=== PATIENT | male | born 1935 | race American Indian/Alaskan Native ===

== ENCOUNTER 2017-06-29 10:40 | Outpatient (CLI) | payer MEDICARE ==
--- NOTE | 2017-06-29 23:13 | XRay Report ---
FINAL REPORT PROCEDURE: XR FEMUR 2+V RT TECHNIQUE: RIGHT femur radiographs, AP and lateral views. HISTORY: LEG PAIN COMPARISON: No prior studies are available for comparison. FINDINGS: Fracture (s) and/or Dislocation(s): None . Joint space(s): Mild narrowing of the joint spaces. Soft tissues: Normal . Bone mineralization: Normal . Foreign bodies: None . IMPRESSION: No acute fracture or dislocation. Mild arthritis
--- NOTE | 2017-06-29 23:15 | XRay Report ---
FINAL REPORT PROCEDURE: XR HIPS BILAT 2V W/PELVIS TECHNIQUE: Bilateral hip radiographs, 2 views each, including AP view of the pelvis. HISTORY: EDEMA COMPARISON: No prior studies are available for comparison. FINDINGS: Fracture (s) and/or Dislocation(s): None . Joint space(s): Mild narrowing of the hip joint spaces Soft tissues: Normal. Bone mineralization: Normal. Foreign bodies: None. IMPRESSION: No evidence of an acute fracture. No mild arthritis
== END 2017-06-29 10:41 | disposition home or self-care (01) ==
LOC: SPVIMAG 10:40
DX: M19.90 Unspecified osteoarthritis, unspecified site (principal); R60.0 Localized edema
CPT/HCPCS: 73521

== ENCOUNTER 2017-06-30 10:26 | Inpatient (IN) | payer MEDICARE ==
--- NOTE | 2017-06-30 11:59 | XRay Report ---
Right femur 2 views: History: Leg pain. Findings: There is mild arthritic changes noted in the hip joints. No lytic lesion. No periosteal reaction or fracture or significant soft tissue calcification. Impression: Mild arthritic changes right hip.
--- NOTE | 2017-06-30 12:00 | XRay Report ---
Bilateral hips: History: Edema. Findings: Mild arthritic changes of the right and left hip joint. No fracture dislocation or soft tissue calcification Impression: Mild changes in right and left hip.
--- NOTE | 2017-06-30 15:06 | Emergency Department Report ---
ED General Adult HPI - General Chief complaint: Extremity Problem,Nontraumatic Time Seen by Provider: 06/30/17 13:11 Source: patient, family Mode of arrival: Wheelchair Limitations: No Limitations - History of Present Illness Initial comments: Patient is a 81-year-old male past medical history COPD on hospice who presents with left leg pain. Patient's left leg pain is a 7 out of 10 it is an achy pain nothing makes it better or worse. The pain is constant is been going on for about a week. Patient is a patient of Dr. Sultana was sent here for referral due to him having leg pain the leg pain is a 4 out of 10 it is constant and nothing makes it better or worse it goes throughout his legs and he 's noticed swelling in his right leg. Patient is on 5 L of home O2 he is on hospice care. Severity scale (0 -10): 0 - Related Data Home Medications Medication Instructions Recorded Confirmed Last Taken ALBUTEROL Inhaler [ProAir HFA 2 puff IH QID PRN 12/15/14 12/15/14 Unknown Inhaler] Albuterol *Only Ed* [Proventil 2.5 mg IH Q4H PRN 12/15/14 12/15/14 Unknown 0.5% NEBS] Fluticasone/Salmeterol [Advair 1 puff IH BID 12/15/14 12/15/14 Unknown Diskus 250-50 mcg] Previous Rx's Medication Instructions Recorded Last Taken Type Azithromycin [Zithromax TAB] 250 mg PO QDAY #7 tablet 12/16/14 Unknown Rx HYDROcodone/HOMATROP 5-1.5 5 ml PO BID PRN #150 ml 12/16/14 Unknown Rx [HYDROcodone-Homatropin 5-1.5 mg per 5 ML] predniSONE [Deltasone] 10 mg PO QDAY #52 tab 12/17/14 Unknown Rx Allergies Allergy/AdvReac Type Severity Reaction Status Date / Time No Known Allergies Allergy Verified 06/30/17 12:26 ED Review of Systems ROS: Stated complaint: Other details as noted in HPI Constitutional: denies: chills, fever Eyes: denies: eye pain, eye discharge, vision change ENT: denies: ear pain, throat pain Respiratory: denies: cough, shortness of breath, wheezing Cardiovascular: denies: chest pain, palpitations Endocrine: no symptoms reported Gastrointestinal: denies: abdominal pain, nausea, diarrhea Genitourinary: denies: urgency, dysuria Musculoskeletal: as per HPI. denies: back pain, joint swelling, arthralgia Skin: denies: rash, lesions Neurological: denies: headache, weakness, paresthesias Psychiatric: denies: anxiety, depression Hematological/Lymphatic: denies: easy bleeding, easy bruising ED Past Medical Hx - Past Medical History Previous Medical History?: Yes Hx Diabetes: Yes (borderline) Hx COPD: Yes Additional medical history: 20%lung capacity due to COPD. Pt is on hospice for COPD - Social History Smoking Status: Never Smoker Substance Use Type: None, Alcohol - Medications Home Medications: Home Medications Medication Instructions Recorded Confirmed Last Taken Type ALBUTEROL Inhaler [ProAir HFA 2 puff IH QID PRN 12/15/14 12/15/14 Unknown History Inhaler] Albuterol *Only Ed* [Proventil 2.5 mg IH Q4H PRN 12/15/14 12/15/14 Unknown History 0.5% NEBS] Fluticasone/Salmeterol [Advair 1 puff IH BID 12/15/14 12/15/14 Unknown History Diskus 250-50 mcg] Azithromycin [Zithromax TAB] 250 mg PO QDAY #7 tablet 12/16/14 Unknown Rx HYDROcodone/HOMATROP 5-1.5 5 ml PO BID PRN #150 ml 12/16/14 Unknown Rx [HYDROcodone-Homatropin 5-1.5 mg per 5 ML] predniSONE [Deltasone] 10 mg PO QDAY #52 tab 12/17/14 Unknown Rx ED Physical Exam - General Limitations: No Limitations General appearance: alert, in no apparent distress - Head Head exam: Present: atraumatic, normocephalic - Eye Eye exam: Present: normal appearance - ENT ENT exam: Present: mucous membranes moist - Neck Neck exam: Present: normal inspection - Respiratory Respiratory exam: Present: normal lung sounds bilaterally. Absent: respiratory distress - Cardiovascular Cardiovascular Exam: Present: regular rate, normal rhythm. Absent: systolic murmur, diastolic murmur, rubs, gallop - GI/Abdominal GI/Abdominal exam: Present: soft, normal bowel sounds - Rectal Rectal exam: Present: deferred - Extremities Exam Extremities exam: Present: normal inspection, tenderness (right calf ), pedal edema, other - Back Exam Back exam: Present: normal inspection - Neurological Exam Neurological exam: Present: alert, oriented X3 - Psychiatric Psychiatric exam: Present: normal affect, normal mood - Skin Skin exam: Present: warm, dry, intact, normal color. Absent: rash ED Course Vital Signs 06/30/17 06/30/17 06/30/17 12:11 12:12 12:15 Temperature 98.3 F Pulse Rate 68 Respiratory 18 18 Rate Blood Pressure 123/68 Blood Pressure 123/68 [Left] O2 Sat by Pulse 94 97 94 Oximetry 06/30/17 06/30/17 12:16 12:30 Temperature Pulse Rate Respiratory Rate Blood Pressure 122/67 131/62 Blood Pressure [Left] O2 Sat by Pulse 94 93 Oximetry ED Medical Decision Making - Radiology Data Radiology results: report reviewed Right venous leg duplex: Positive for deep venous thrombosis. - Medical Decision Making Cdx: DVT ddx: SVT, Cellulitis I will give I am Lovenox I will get CBC, PTT and INR and I'll be patient oral pain medication. I will give blood work, lovenox and I will admit patient do Dr. Bynum's service is patient agrees to plan Critical care attestation.: If time is entered above; I have spent that time in minutes in the direct care of this critically ill patient, excluding procedure time. ED Disposition Clinical Impression: DVT (deep venous thrombosis) Qualifiers: DVT location: lower extremity Affected thrombotic vein of extremity: femoral Chronicity: acute Laterality: right Qualified Code(s): I82.411 - Acute embolism and thrombosis of right femoral vein Disposition: OP ADMIT IP TO THIS HOSP Is pt being admited?: Yes Does the pt Need Aspirin: No Condition: Stable Referrals: RADHA RICHARDS MD, PHD [Primary Care Provider] - 3-5 Days
[2017-06-30] MEDS ORDERED: LOVENOX SUB-Q ONE ×3 (15:40→15:43)
[2017-06-30 15:41] LABS: BUN/Creatinine Ratio 17; Basophils % (Auto) 0.5 % (0.0-1.8); Blood Urea Nitrogen 15 mg/dL (9-20); Calcium 9.6 mg/dL (8.4-10.2); Eosinophils % (Auto) 0.2 % (0.0-4.3); Hematocrit 45.8 % (35.5-45.6); Hemoglobin 14.6 gm/dl (11.8-15.2); Hemolysis Index 8; Lymphocytes # (Auto) 1.2 K/mm3 (1.2-5.4); Lymphocytes % (Auto) 16.5 % (13.4-35.0); Mean Corpuscular HGB Conc 32 % (32-34); Mean Corpuscular Hemoglobin 31 pg (28-32); Mean Corpuscular Volume 96 fl (84-94); Monocytes # (Auto) 0.4 K/mm3 (0.0-0.8); Monocytes % (Auto) 5.6 % (0.0-7.3); Platelet Count 141 K/mm3 (140-440); Red Blood Count 4.76 M/mm3 (3.65-5.03); Red Cell Distribution Width 15.1 % (13.2-15.2)
[2017-06-30 15:46] LABS: INR 0.95 (0.87-1.13)
[2017-06-30 15:47] LABS: Partial Thromboplastin Time 26.9 Sec. (24.2-36.6)
[2017-06-30] MEDS ORDERED: LOVENOX SUB-Q SCH (16:00)
[2017-06-30] MEDS: LOVENOX SUB-Q SCH ×2 (16:10→22:26)
[2017-06-30] MEDS ORDERED: TYLENOL PO PRN (17:34)
[2017-06-30] MEDS ORDERED: SODIUM CHLORIDE FLUSH SYRINGE 10 ML IV PRN (17:34)
[2017-06-30] MEDS ORDERED: MORPHINE IV PRN (17:34)
[2017-06-30] MEDS ORDERED: ZOFRAN IV PRN (17:34)
[2017-06-30] MEDS ORDERED: PERCOCET 5/325 PO PRN (17:34)
--- NOTE | 2017-06-30 17:34 | History and Physical Report ---
History of Present Illness Date of examination: 06/30/17 Date of admission: 06/30/17 15:27 Chief complaint: RLE swelling History of present illness: History of Present Illness Initial comments: Patient is a 81-year-old male past medical history COPD on hospice who presents with left leg pain. Patient's left leg pain is a 7 out of 10 it is an achy pain nothing makes it better or worse. The pain is constant is been going on for about a week. Patient is a patient of Dr. Sultana was sent here for referral due to him having leg pain the leg pain is a 4 out of 10 it is constant and nothing makes it better or worse it goes throughout his legs and he 's noticed swelling in his right leg. Patient is on 5 L of home O2 he is on hospice care. Past Medical History Previous Medical History?: Yes Hx Diabetes: Yes (borderline) Hx COPD: Yes Additional medical history: 20%lung capacity due to COPD. Pt is on hospice for COPD - Social History Smoking Status: Never Smoker Substance Use Type: None, Alcohol Surgical and Family Hostory Non Contributory - Medications Home Medications: Home Medications Medication Instructions Recorded Confirmed Last Taken Type ALBUTEROL Inhaler [ProAir HFA 2 puff IH QID PRN 12/15/14 12/15/14 Unknown History Inhaler] Albuterol *Only Ed* [Proventil 2.5 mg IH Q4H PRN 12/15/14 12/15/14 Unknown History 0.5% NEBS] Fluticasone/Salmeterol [Advair 1 puff IH BID 12/15/14 12/15/14 Unknown History Diskus 250-50 mcg] Azithromycin [Zithromax TAB] 250 mg PO QDAY #7 tablet 12/16/14 Unknown Rx HYDROcodone/HOMATROP 5-1.5 5 ml PO BID PRN #150 ml 12/16/14 Unknown Rx [HYDROcodone-Homatropin 5-1.5 mg per 5 ML] predniSONE [Deltasone] 10 mg PO QDAY #52 tab 12/17/14 Unknown Rx Review of Systems ROS: Stated complaint: Other details as noted in HPI Constitutional: denies: chills, fever Eyes: denies: eye pain, eye discharge, vision change ENT: denies: ear pain, throat pain Respiratory: denies: cough, shortness of breath, wheezing Cardiovascular: denies: chest pain, palpitations Endocrine: no symptoms reported Gastrointestinal: denies: abdominal pain, nausea, diarrhea Genitourinary: denies: urgency, dysuria Musculoskeletal: as per HPI. denies: back pain, joint swelling, arthralgia Skin: denies: rash, lesions Neurological: denies: headache, weakness, paresthesias Psychiatric: denies: anxiety, depression Hematological/Lymphatic: denies: easy bleeding, easy bruising Medications and Allergies Allergies Allergy/AdvReac Type Severity Reaction Status Date / Time No Known Allergies Allergy Verified 06/30/17 12:26 Home Medications Medication Instructions Recorded Confirmed Last Taken Type Ipratropium 0.06% [Atrovent] 2 spray NS Q8HR 06/30/17 06/30/17 06/29/17 History amLODIPine [Norvasc] 5 mg PO DAILY 06/30/17 06/30/17 06/30/17 History ALBUTEROL NEB's Q4H PRN 07/01/17 Unknown History Active Meds: Active Medications Enoxaparin Sodium (Lovenox) 70 mg SUB-Q Q12HR [facility] Last Admin: 06/30/17 16:10 Dose: 70 mg Exam - Constitutional Vitals: Temp Pulse Resp BP Pulse Ox 98.3 F 73 18 136/52 94 06/30/17 12:11 06/30/17 15:15 06/30/17 15:15 06/30/17 15:15 06/30/17 15:15 General appearance: Present: no acute distress, well-nourished - EENT Eyes: Present: PERRL ENT: hearing intact, clear oral mucosa - Neck Neck: Present: supple, normal ROM - Respiratory Respiratory effort: normal Respiratory: bilateral: CTA - Cardiovascular Heart rate: 70 Rhythm: regular Heart Sounds: Present: S1 & S2. Absent: rub, click - Extremities Extremities: pulses symmetrical, No edema Extremity abnormal: edema, other (RLE swollen from Mid Thigh down to ankle) Peripheral Pulses: within normal limits - Abdominal General gastrointestinal: Present: soft, non-tender, non-distended, normal bowel sounds Male genitourinary: Present: normal - Integumentary Integumentary: Present: clear, warm, dry - Musculoskeletal Musculoskeletal: gait normal, strength equal bilaterally - Psychiatric Psychiatric: appropriate mood/affect, intact judgment & insight - Neurologic Neurologic: CNII-XII intact, moves all extremities Results - Labs CBC & Chem 7: 07/01/17 05:08 07/01/17 05:08 Labs: Laboratory Last Values WBC 7.1 K/mm3 (4.5-11.0) 06/30/17 15:00 RBC 4.76 M/mm3 (3.65-5.03) 06/30/17 15:00 Hgb 14.6 gm/dl (11.8-15.2) 06/30/17 15:00 Hct 45.8 % (35.5-45.6) H 06/30/17 15:00 MCV 96 fl (84-94) H 06/30/17 15:00 MCH 31 pg (28-32) 06/30/17 15:00 MCHC 32 % (32-34) 06/30/17 15:00 RDW 15.1 % (13.2-15.2) 06/30/17 15:00 Plt Count 141 K/mm3 (140-440) 06/30/17 15:00 Lymph % (Auto) 16.5 % (13.4-35.0) 06/30/17 15:00 [place] % (Auto) 5.6 % (0.0-7.3) 06/30/17 15:00 Eos % (Auto) 0.2 % (0.0-4.3) 06/30/17 15:00 Baso % (Auto) 0.5 % (0.0-1.8) 06/30/17 15:00 Lymph # 1.2 K/mm3 (1.2-5.4) 06/30/17 15:00 [place] # 0.4 K/mm3 (0.0-0.8) 06/30/17 15:00 Eos # 0.0 K/mm3 (0.0-0.4) 06/30/17 15:00 Baso # 0.0 K/mm3 (0.0-0.1) 06/30/17 15:00 Seg Neutrophils % 77.2 % (40.0-70.0) H 06/30/17 15:00 Seg Neutrophils # 5.5 K/mm3 (1.8-7.7) 06/30/17 15:00 PT 13.2 Sec. (12.2-14.9) 06/30/17 15:00 INR 0.95 (0.87-1.13) 06/30/17 15:00 APTT 26.9 Sec. (24.2-36.6) 06/30/17 15:00 Sodium 137 mmol/L (137-145) 06/30/17 15:00 Potassium 4.7 mmol/L (3.6-5.0) 06/30/17 15:00 Chloride 96.5 mmol/L (98-107) L 06/30/17 15:00 Carbon Dioxide 27 mmol/L (22-30) 06/30/17 15:00 Anion Gap 18 mmol/L 06/30/17 15:00 BUN 15 mg/dL (9-20) 06/30/17 15:00 Creatinine 0.9 mg/dL (0.8-1.5) 06/30/17 15:00 Estimated GFR > 60 ml/min 06/30/17 15:00 BUN/Creatinine Ratio 17 % 06/30/17 15:00 Glucose 185 mg/dL (75-100) H 06/30/17 15:00 Calcium 9.6 mg/dL (8.4-10.2) 06/30/17 15:00 - Imaging and Cardiology EKG: report reviewed Imaging and Cardiology: VASCULAR LAB.PRELIMINARY REPORT. RLE VENOUS DUPLEX DONE. EVIDENCE OF ACUTE DVT IN THE RT.DISTAL ILIAC VEIN EXTENDING TO THE RT.PERONEAL VEIN AT MID CALF. INFORMED AT 1128 . HE SAID TO BRING THE PATIENT TO THE ER FOR ADMISSION. Assessment and Plan Advance Directives: Yes (Full code) VTE prophylaxis?: Chemical Plan of care discussed with patient/family: Yes - Patient Problems (1) DVT (deep venous thrombosis) Current Visit: Yes Status: Acute Qualifiers: DVT location: lower extremity Affected thrombotic vein of extremity: femoral Chronicity: acute Laterality: right Qualified Code(s): I82.411 - Acute embolism and thrombosis of right femoral vein Plan to address problem: RLE DVT extensive Patient initiated on Lovenox To be discharged on Eliquis or Xarelto (2) COPD (chronic obstructive pulmonary disease) Current Visit: Yes Status: Chronic Qualifiers: Emphysema type: unspecified Plan to address problem: Severe with ESLD ---20 percent capacity on Hospice Cont Duonebs (3) T2DM (type 2 diabetes mellitus) Current Visit: Yes Status: Chronic Qualifiers: Diabetes mellitus long-term insulin use: without long-term use Plan to address problem: Coverage only (4) Malnutrition of moderate degree Current Visit: Yes Status: Acute Plan to address problem: Dietitian conult for oral supplements (5) DVT prophylaxis Current Visit: No Status: Acute Plan to address problem: On Lovenox
[2017-06-30] MEDS: ATROVENT NS SCH ×2 (19:15→22:26)
[2017-06-30] MEDS: NORVASC PO SCH (19:15)
[2017-06-30] MEDS: PEPCID PO SCH (22:27)
[2017-06-30] MEDS: SODIUM CHLORIDE FLUSH SYRINGE 10 ML IV SCH (22:28)
[2017-07-01] MEDS: D5NS 1,000 ML IV SCH ×2 (02:39→18:59)
[2017-07-01 05:41] LABS: Basophils % (Auto) 0.6 % (0.0-1.8); Eosinophils # (Auto) 0.1 K/mm3 (0.0-0.4); Eosinophils % (Auto) 1.6 % (0.0-4.3); Hematocrit 41.5 % (35.5-45.6); Hemoglobin 13.4 gm/dl (11.8-15.2); Lymphocytes # (Auto) 2.3 K/mm3 (1.2-5.4); Lymphocytes % (Auto) 32.4 % (13.4-35.0); Mean Corpuscular HGB Conc 32 % (32-34); Mean Corpuscular Hemoglobin 31 pg (28-32); Mean Corpuscular Volume 95 fl (84-94); Monocytes # (Auto) 0.6 K/mm3 (0.0-0.8); Monocytes % (Auto) 8.9 % (0.0-7.3); Platelet Count 130 K/mm3 (140-440); Red Blood Count 4.35 M/mm3 (3.65-5.03)
[2017-07-01 06:00] LABS: Alanine Aminotransferase 25 units/L (7-56); Albumin 3.7 g/dL (3.9-5); BUN/Creatinine Ratio 16; Blood Urea Nitrogen 13 mg/dL (9-20); Calcium 8.8 mg/dL (8.4-10.2); Hemolysis Index 6
[2017-07-01] MEDS: ATROVENT NS SCH (06:37)
[2017-07-01] MEDS ORDERED: DUONEB *Not for PRN Use IH (07:49)
[2017-07-01] MEDS ORDERED: PROVENTIL IH PRN (07:59)
[2017-07-01] MEDS ORDERED: DUONEB *Not for PRN Use IH SCH (08:00)
[2017-07-01] MEDS: PEPCID PO SCH ×2 (09:25→21:34)
[2017-07-01] MEDS: LOVENOX SUB-Q SCH ×2 (09:25→21:34)
[2017-07-01] MEDS: NORVASC PO SCH (09:25)
[2017-07-01] MEDS: SODIUM CHLORIDE FLUSH SYRINGE 10 ML IV SCH ×2 (09:26→21:35)
[2017-07-01] MEDS ORDERED: PNEUMOVAX 23 IM ONE (12:00)
[2017-07-01] MEDS: HumaLOG SUB-Q SCH ×3 (12:06→21:35)
[2017-07-01] MEDS: DUONEB *Not for PRN Use IH SCH ×2 (13:17→20:06)
--- NOTE | 2017-07-01 17:40 | Progress Note ---
Assessment and Plan Assessment and plan: --Right lower extremity DVT On Lovenox, will change to Eliquis tomorrow Follow art librarian as outpatient --History of COPD/end-stage lung disease On hospice, continue oxygen and nebulizers and supportive care --Type 2 diabetes mellitus; Accu-Chek sliding scale coverage and ADA diet Insulin as needed --Mild protein calorie malnutrition; nutrition supplements and supportive care --DVT prophylaxis; on Lovenox --Full CODE STATUS --DC planning per case management possible home with hospice When medically stable History Interval history: Patient seen and examined medical records reviewed Admitted with lower extremity DVT, On Lovenox Patient has no new complaints Vital signs reviewed Hospitalist Physical - Constitutional Vitals: Temp Pulse Resp BP Pulse Ox 98.1 F 69 19 128/51 99 07/01/17 15:53 07/01/17 15:53 07/01/17 15:53 07/01/17 15:32 07/01/17 15:53 General appearance: Present: no acute distress, well-nourished - EENT Eyes: Present: PERRL, EOM intact - Neck Neck: Present: supple, normal ROM - Respiratory Respiratory effort: normal Respiratory: bilateral: diminished, negative: rales, rhonchi, wheezing - Cardiovascular Rhythm: regular Heart Sounds: Present: S1 & S2 - Extremities Extremities: no ischemia, abnormal ( lower extremity DVT) - Abdominal General gastrointestinal: soft, non-tender, non-distended, normal bowel sounds - Integumentary Integumentary: Present: clear, warm - Psychiatric Psychiatric: appropriate mood/affect, cooperative - Neurologic Neurologic: CNII-XII intact, moves all extremities Results - Labs CBC & Chem 7: 07/01/17 05:08 07/01/17 05:08 Labs: Laboratory Last Values WBC 7.2 K/mm3 (4.5-11.0) 07/01/17 05:08 RBC 4.35 M/mm3 (3.65-5.03) 07/01/17 05:08 Hgb 13.4 gm/dl (11.8-15.2) 07/01/17 05:08 Hct 41.5 % (35.5-45.6) 07/01/17 05:08 MCV 95 fl (84-94) H 07/01/17 05:08 MCH 31 pg (28-32) 07/01/17 05:08 MCHC 32 % (32-34) 07/01/17 05:08 RDW 15.0 % (13.2-15.2) 07/01/17 05:08 Plt Count 130 K/mm3 (140-440) L 07/01/17 05:08 Lymph % (Auto) 32.4 % (13.4-35.0) 07/01/17 05:08 [place] % (Auto) 8.9 % (0.0-7.3) H 07/01/17 05:08 Eos % (Auto) 1.6 % (0.0-4.3) 07/01/17 05:08 Baso % (Auto) 0.6 % (0.0-1.8) 07/01/17 05:08 Lymph # 2.3 K/mm3 (1.2-5.4) 07/01/17 05:08 [place] # 0.6 K/mm3 (0.0-0.8) 07/01/17 05:08 Eos # 0.1 K/mm3 (0.0-0.4) 07/01/17 05:08 Baso # 0.0 K/mm3 (0.0-0.1) 07/01/17 05:08 Seg Neutrophils % 56.5 % (40.0-70.0) 07/01/17 05:08 Seg Neutrophils # 4.1 K/mm3 (1.8-7.7) 07/01/17 05:08 PT 13.2 Sec. (12.2-14.9) 06/30/17 15:00 INR 0.95 (0.87-1.13) 06/30/17 15:00 APTT 26.9 Sec. (24.2-36.6) 06/30/17 15:00 Sodium 139 mmol/L (137-145) 07/01/17 05:08 Potassium 4.0 mmol/L (3.6-5.0) 07/01/17 05:08 Chloride 99.4 mmol/L (98-107) 07/01/17 05:08 Carbon Dioxide 27 mmol/L (22-30) 07/01/17 05:08 Anion Gap 17 mmol/L 07/01/17 05:08 BUN 13 mg/dL (9-20) 07/01/17 05:08 Creatinine 0.8 mg/dL (0.8-1.5) 07/01/17 05:08 Estimated GFR > 60 ml/min 07/01/17 05:08 BUN/Creatinine Ratio 16 % 07/01/17 05:08 Glucose 110 mg/dL (75-100) H 07/01/17 05:08 POC Glucose 105 (70-105) 07/01/17 15:59 Hemoglobin A1c 7.6 % (4-6) H 06/30/17 15:00 Calcium 8.8 mg/dL (8.4-10.2) 07/01/17 05:08 Total Bilirubin 0.40 mg/dL (0.1-1.2) 07/01/17 05:08 AST 15 units/L (5-40) 07/01/17 05:08 ALT 25 units/L (7-56) 07/01/17 05:08 Alkaline Phosphatase 34 units/L (35-129) L 07/01/17 05:08 Total Protein 6.2 g/dL (6.3-8.2) L 07/01/17 05:08 Albumin 3.7 g/dL (3.9-5) L 07/01/17 05:08 Albumin/Globulin Ratio 1.5 % 07/01/17 05:08
[2017-07-02] MEDS: D5NS 1,000 ML IV SCH (04:53)
[2017-07-02] MEDS: HumaLOG SUB-Q SCH ×3 (08:00→16:30)
[2017-07-02] MEDS: DUONEB *Not for PRN Use IH SCH ×2 (09:03→15:19)
--- NOTE | 2017-07-02 09:19 | Progress Note ---
Hospitalist Physical - Constitutional Vitals: Temp Pulse Resp BP Pulse Ox 98.7 F 72 18 136/58 94 07/02/17 07:42 07/02/17 09:16 07/02/17 09:16 07/02/17 07:42 07/02/17 07:42 General appearance: Present: no acute distress, well-nourished Results - Labs CBC & Chem 7: 07/01/17 05:08 07/01/17 05:08 Labs: Laboratory Last Values WBC 7.2 K/mm3 (4.5-11.0) 07/01/17 05:08 RBC 4.35 M/mm3 (3.65-5.03) 07/01/17 05:08 Hgb 13.4 gm/dl (11.8-15.2) 07/01/17 05:08 Hct 41.5 % (35.5-45.6) 07/01/17 05:08 MCV 95 fl (84-94) H 07/01/17 05:08 MCH 31 pg (28-32) 07/01/17 05:08 MCHC 32 % (32-34) 07/01/17 05:08 RDW 15.0 % (13.2-15.2) 07/01/17 05:08 Plt Count 130 K/mm3 (140-440) L 07/01/17 05:08 Lymph % (Auto) 32.4 % (13.4-35.0) 07/01/17 05:08 [place] % (Auto) 8.9 % (0.0-7.3) H 07/01/17 05:08 Eos % (Auto) 1.6 % (0.0-4.3) 07/01/17 05:08 Baso % (Auto) 0.6 % (0.0-1.8) 07/01/17 05:08 Lymph # 2.3 K/mm3 (1.2-5.4) 07/01/17 05:08 [place] # 0.6 K/mm3 (0.0-0.8) 07/01/17 05:08 Eos # 0.1 K/mm3 (0.0-0.4) 07/01/17 05:08 Baso # 0.0 K/mm3 (0.0-0.1) 07/01/17 05:08 Seg Neutrophils % 56.5 % (40.0-70.0) 07/01/17 05:08 Seg Neutrophils # 4.1 K/mm3 (1.8-7.7) 07/01/17 05:08 PT 13.2 Sec. (12.2-14.9) 06/30/17 15:00 INR 0.95 (0.87-1.13) 06/30/17 15:00 APTT 26.9 Sec. (24.2-36.6) 06/30/17 15:00 Sodium 139 mmol/L (137-145) 07/01/17 05:08 Potassium 4.0 mmol/L (3.6-5.0) 07/01/17 05:08 Chloride 99.4 mmol/L (98-107) 07/01/17 05:08 Carbon Dioxide 27 mmol/L (22-30) 07/01/17 05:08 Anion Gap 17 mmol/L 07/01/17 05:08 BUN 13 mg/dL (9-20) 07/01/17 05:08 Creatinine 0.8 mg/dL (0.8-1.5) 07/01/17 05:08 Estimated GFR > 60 ml/min 07/01/17 05:08 BUN/Creatinine Ratio 16 % 07/01/17 05:08 Glucose 110 mg/dL (75-100) H 07/01/17 05:08 POC Glucose 92 (70-105) 07/02/17 05:42 Hemoglobin A1c 7.6 % (4-6) H 06/30/17 15:00 Calcium 8.8 mg/dL (8.4-10.2) 07/01/17 05:08 Total Bilirubin 0.40 mg/dL (0.1-1.2) 07/01/17 05:08 AST 15 units/L (5-40) 07/01/17 05:08 ALT 25 units/L (7-56) 07/01/17 05:08 Alkaline Phosphatase 34 units/L (35-129) L 07/01/17 05:08 Total Protein 6.2 g/dL (6.3-8.2) L 07/01/17 05:08 Albumin 3.7 g/dL (3.9-5) L 07/01/17 05:08 Albumin/Globulin Ratio 1.5 % 07/01/17 05:08
[2017-07-02] MEDS ORDERED: ELIQUIS PO SCH ×2 (10:00→17:00)
[2017-07-02] MEDS: PEPCID PO SCH (10:26)
[2017-07-02] MEDS: NORVASC PO SCH (10:27)
[2017-07-02] MEDS: SODIUM CHLORIDE FLUSH SYRINGE 10 ML IV SCH (10:27)
--- NOTE | 2017-07-02 13:17 | Discharge Summary ---
Providers - Providers Date of Admission: 06/30/17 15:27 Date of discharge: 07/02/17 Attending physician: EFFIE HUTCHINS 07/01/17 08:24 Consult to Dietitian/Nutrition [CONS] Routine Physician Instructions: Reason For Exam: Malnutrition Reason for Consult: Pt needs oral supplement Primary care physician: RADHA RICHARDS Hospitalization Reason for admission: lower extremity swelling /lower extremity DVT Condition: Stable Pertinent studies: Femur x-ray; mild arthritic changes right hip Hip and pelvis x-ray; mild changes in both right and left hip Lower extremity venous Doppler; acute right lower extremity DVT CTA chest; bilateral PE Hospital course: Uyen burch 81-year-old -[place] male patient with significant history of end-stage COPD on hospice was admitted through emergency room with left lower extremity pain and swelling and tenderness Lower extremity venous Doppler studies consistent with acute DVT Patient was admitted started on Lovenox full dose Elevated the limb managed with pain medications Later changed to Eliquis per protocol, we also checked CTA chest ; positive for bilateral PE Agent already has home oxygen Today patient is comfortable in bed, no new complaints Vital signs stable, [id number] evaluation physical examination done by me that her discharge is unremarkable Patient is hemodynamically and clinically stable for discharge Advised to follow with hematology oncologist within 1 week for further evaluation and management Patient verbalized understanding Discharge diagnosis; --Right lower extremity DVT Placed on Eliquis per protocol Follow telephone operator as outpatient --Bilateral PE; hemodynamically stable,Pt has home o2 Continue requests, supportive care --History of COPD/end-stage lung disease On hospice, continue oxygen and nebulizers --Type 2 diabetes mellitus; Accu-Chek sliding scale coverage and ADA diet Insulin as needed --Mild protein calorie malnutrition; nutrition supplements and supportive care Disposition: DC- TO HOME OR SELFCARE Time spent for discharge: 32 min Core Measure Documentation - Palliative Care Palliative Care/ Comfort Measures: Not Applicable - Core Measures Any of the following diagnoses?: DVT/PE - VTE Discharge Requirements Deep Vein Thrombosis/Pulmonary Embolism Present on Admission: Yes Has pt received <5 days of overlap therapy or INR<2.0: Yes (patient on Eliquis) Anticoagulant overlap therapy prescribed at discharge: No Contraindication No Overlap Therapy order at DC: Not Indicated (patient on Eliquis) Exam - Constitutional Vitals: Temp Pulse Resp BP Pulse Ox 98.7 F 72 18 124/73 94 04/29/18 07:42 07/02/17 10:27 07/02/17 09:16 07/02/17 10:27 07/02/17 07:42 General appearance: Present: no acute distress, well-nourished - EENT Eyes: Present: PERRL, EOM intact - Neck Neck: Present: supple, normal ROM - Respiratory Respiratory effort: normal Respiratory: bilateral: diminished, rhonchi, negative: rales, wheezing - Cardiovascular Rhythm: regular Heart Sounds: Present: S1 & S2 - Extremities Extremities: no ischemia, No edema, abnormal (right lower extremity mild swelling) - Abdominal General gastrointestinal: Present: soft, non-tender, non-distended, normal bowel sounds - Integumentary Integumentary: Present: clear, warm - Musculoskeletal Musculoskeletal: strength equal bilaterally - Psychiatric Psychiatric: appropriate mood/affect, cooperative - Neurologic Neurologic: CNII-XII intact Plan Activity: advance as tolerated, fall precautions Diet: regular Additional Instructions: If you notice any bleeding, stop Eliquis and contact [facility] Hematology oncologist in 1 week Follow up with: RADHA RICHARDS MD, PHD [Primary Care Provider] - 3-5 Days ALEXANDRA JUAREZ DO [Staff Physician] - 7 Days Prescriptions: Apixaban [Eliquis] 5 mg PO Q12HR #68 tablet oxyCODONE /ACETAMINOPHEN [Percocet 5/325 mg] 1 tab PO QHS PRN #5 tablet PRN Reason: Pain, Moderate (4-6)
[2017-07-02 16:19] VITALS: BP 128/59
--- NOTE | 2017-07-02 16:22 | Cat Scan Report ---
FINAL REPORT EXAM: CT ANGIO CHEST HISTORY: lower extremity DVT/evaluate for PE TECHNIQUE: Spiral CTA of the chest after the uneventful administration of IV contrast. Multiplanar reformations. 100 mL Omnipaque IV. PRIORS: None. FINDINGS: A few, endoluminal filling defects noted bilaterally, including in the right lower lobe segmental-subsegmental pulmonary arteries and left inferior lingula and lower lobe interlobar and segmental pulmonary arteries, compatible with pulmonary emboli. The main pulmonary trunk and bilateral main pulmonary arteries are normally opacified. Cardiac size within normal limits. No apparent aneurysm, pseudoaneurysm or aortic dissection. No significant lymph node enlargement or axillary adenopathy. Very small hiatal hernia. Lungs show diffuse, bullous emphysematous and less pronounced fibrotic change or scarring. Mild and partially confluent, pleuro-parenchymal opacities in the posteromedial aspect of right lower lobe in region of previously noted pulmonary embolus. No discrete parenchymal mass, other focal consolidation or pleural effusions. No apparent pneumothorax. Visualized upper abdomen grossly unremarkable. Left renal cyst measures approximately 1.3 cm. IMPRESSION: 1. Findings compatible with bilateral pulmonary emboli. Very mild clot burden. 2. Emphysematous change, and findings which may represent right basilar atelectasis, mild infiltrate, possible infarct or scarring. Dr. Lee discussed results with Dr. Hunt on 02 July 2017 at approximately 1611 hours EST.
== END 2017-07-02 16:45 | disposition hospice, home (50) | DRG 299 ==
LOC: ED 10:26 → VAS 10:26 → EDSTATUS 11:30 → 4A 15:27 → 3A 15:54
PROVIDERS: ADMIT Internal Medicine; ATTEND Internal Medicine
PROC: 3E0234Z Introduction of Serum, Toxoid and Vaccine into Muscle, Percutaneous Approach (ICD-10-PCS; principal; 2017-07-01)
DX: I82.411 Acute embolism and thrombosis of right femoral vein (principal); I26.99 Other pulmonary embolism without acute cor pulmonale; E44.0 Moderate protein-calorie malnutrition; J44.9 Chronic obstructive pulmonary disease, unspecified; E11.9 Type 2 diabetes mellitus without complications; Z79.899 Other long term (current) drug therapy; Z68.23 Body mass index [BMI] 23.0-23.9, adult; Z23 Encounter for immunization
CPT/HCPCS: 36415; 71275; 73521; 80048; 80053; 82962; 83036; 85025; 85610; 85730; 90732; 94640; J1650; J7042; Q9967